=== PATIENT | male | born 1965 | race American Indian/Alaskan Native ===

== ENCOUNTER 2019-08-29 15:32 | Observation (INO) | payer OTHER ==
[2019-08-29] MEDS ORDERED: FAMOTIDINE 20 MG/2 ML INJ IV ONE (16:00)
[2019-08-29] MEDS ORDERED: MORPHINE 4 MG/1 ML INJ IV ONE ×2 (16:00→18:23)
[2019-08-29] MEDS ORDERED: SODIUM CHLORIDE 0.9% 1000 ML 1,000 ML IV ONE (16:00)
[2019-08-29] MEDS ORDERED: ONDANSETRON 4 MG/2 ML INJ IV ONE (16:00)
--- NOTE | 2019-08-29 16:07 | Emergency Department Report ---
ED General Adult HPI - General Chief complaint: Chest Pain Stated complaint: CHEST PAIN Time Seen by Provider: 08/29/19 15:55 Source: patient, EMS Mode of arrival: Stretcher Limitations: No Limitations - History of Present Illness Initial comments: Patient is a 53-year-old -[place]one[place] male with a past medical history of hypertension and alcohol abuse who is complaining of some right upper quadrant and right chest pain. Patient states it started gradually several hours ago. Patient assumed he had some indigestion. I did drink alcohol last night around 9 PM. Patient states that the pain began to worsen. Pain To 8 out of 10 in severity. There is no radiation of the pain. Patient has associated nausea vomiting. He denies fevers chills. Patient states he also has developed a mild cough which is nonproductive and he does also have some pleuritic pains as well. He denies diarrhea sore throat neck stiffness or shortness of breath at this time. - Related Data Home Medications Medication Instructions Recorded Confirmed Last Taken ALPRAZolam [Xanax TAB] 0.5 mg PO PRN 04/20/15 04/20/15 Unknown Cholecalciferol (Vitamin D3) 50,000 units PO QWEEK 04/20/15 04/20/15 Unknown [Vitamin D3] Zolpidem [Ambien] 1 tab PO QHS 04/20/15 04/20/15 Unknown Previous Rx's Medication Instructions Recorded Last Taken Type Colchicine [Colcrys] 0.6 mg PO BID #60 tablet 04/22/15 Unknown Rx Febuxostat (Nf) [Uloric (Nf)] 40 mg PO QDAY #30 tablet 04/22/15 Unknown Rx Oxycodone HCl/Acetaminophen 1 each PO Q6HR PRN #20 tablet 04/22/15 Unknown Rx [Percocet 7.5/325 mg] predniSONE [Deltasone] 20 mg PO QDAY #8 tablet 04/22/15 Unknown Rx Allergies Allergy/AdvReac Type Severity Reaction Status Date / Time No Known Allergies Allergy Unverified 04/20/15 18:29 ED Review of Systems ROS: Stated complaint: CHEST PAIN Other details as noted in HPI Comment: All other systems reviewed and negative ED Past Medical Hx - Past Medical History Hx Congestive Heart Failure: No Hx Diabetes: No Hx Asthma: No Hx COPD: No - Social History Smoking Status: Current Every Day Smoker Substance Use Type: Alcohol - Medications Home Medications: Home Medications Medication Instructions Recorded Confirmed Last Taken Type ALPRAZolam [Xanax TAB] 0.5 mg PO PRN 04/20/15 04/20/15 Unknown History Cholecalciferol (Vitamin D3) 50,000 units PO QWEEK 04/20/15 04/20/15 Unknown History [Vitamin D3] Zolpidem [Ambien] 1 tab PO QHS 04/20/15 04/20/15 Unknown History Colchicine [Colcrys] 0.6 mg PO BID #60 tablet 04/22/15 Unknown Rx Febuxostat (Nf) [Uloric (Nf)] 40 mg PO QDAY #30 tablet 04/22/15 Unknown Rx Oxycodone HCl/Acetaminophen 1 each PO Q6HR PRN #20 tablet 04/22/15 Unknown Rx [Percocet 7.5/325 mg] predniSONE [Deltasone] 20 mg PO QDAY #8 tablet 04/22/15 Unknown Rx ED Physical Exam - General Limitations: No Limitations General appearance: alert, anxious, in distress (secondary to pain) - Head Head exam: Present: atraumatic, normocephalic - Eye Eye exam: Present: normal appearance, PERRL, EOMI, scleral icterus - ENT ENT exam: Present: mucous membranes moist - Neck Neck exam: Present: normal inspection - Respiratory Respiratory exam: Present: normal lung sounds bilaterally. Absent: respiratory distress, wheezes, rales, rhonchi - Cardiovascular Cardiovascular Exam: Present: regular rate, normal rhythm. Absent: systolic murmur, diastolic murmur, rubs, gallop - GI/Abdominal GI/Abdominal exam: Present: soft, tenderness (RUQ), normal bowel sounds. Absent: distended, guarding, rebound, rigid - Rectal Rectal exam: Present: deferred - Extremities Exam Extremities exam: Present: normal inspection - Back Exam Back exam: Present: normal inspection - Neurological Exam Neurological exam: Present: alert, oriented X3 - Psychiatric Psychiatric exam: Present: normal affect, normal mood - Skin Skin exam: Present: warm, dry, intact, normal color. Absent: rash ED Course Vital Signs 08/29/19 08/29/19 08/29/19 15:57 15:59 17:09 Pulse Rate 77 81 Respiratory 15 18 Rate Blood Pressure 176/97 Blood Pressure [Left] O2 Sat by Pulse 98 98 Oximetry 08/29/19 08/29/19 18:21 19:14 Pulse Rate 81 88 Respiratory 18 20 Rate Blood Pressure Blood Pressure 179/109 142/90 [Left] O2 Sat by Pulse 99 99 Oximetry ED Medical Decision Making - Lab Data Result diagrams: 08/29/19 16:24 08/29/19 16:24 Lab Results 08/29/19 08/29/19 08/29/19 Range/Units 16:24 16:24 16:24 WBC 7.3 (4.5-11.0) K/mm3 RBC 4.50 (3.65-5.03) M/mm3 Hgb 11.6 L (11.8-15.2) gm/dl Hct 36.1 (35.5-45.6) % MCV 80 L (84-94) fl MCH 26 L (28-32) pg MCHC 32 (32-34) % RDW 16.0 H (13.2-15.2) % Plt Count 216 (140-440) K/mm3 Lymph % (Auto) 34.4 (13.4-35.0) % [place] % (Auto) 10.5 H (0.0-7.3) % Eos % (Auto) 0.3 (0.0-4.3) % Baso % (Auto) 0.4 (0.0-1.8) % Lymph # 2.5 (1.2-5.4) K/mm3 [place] # 0.8 (0.0-0.8) K/mm3 Eos # 0.0 (0.0-0.4) K/mm3 Baso # 0.0 (0.0-0.1) K/mm3 Seg Neutrophils % 54.4 (40.0-70.0) % Seg Neutrophils # 4.0 (1.8-7.7) K/mm3 PT 13.3 (12.2-14.9) Sec. INR 1.02 (0.87-1.13) APTT 29.7 (24.2-36.6) Sec. D-Dimer 197.18 (0-234) ng/mlDDU Sodium 139 (137-145) mmol/L Potassium 4.6 (3.6-5.0) mmol/L Chloride 101.2 (98-107) mmol/L Carbon Dioxide 20 L (22-30) mmol/L Anion Gap 22 mmol/L BUN 32 H (9-20) mg/dL Creatinine 1.0 (0.8-1.5) mg/dL Estimated GFR > 60 ml/min BUN/Creatinine Ratio 32 % Glucose 78 (75-100) mg/dL Calcium 8.9 (8.4-10.2) mg/dL Total Bilirubin 0.30 (0.1-1.2) mg/dL AST 14 (5-40) units/L ALT 6 L (7-56) units/L Alkaline Phosphatase 72 (35-129) units/L Total Protein 6.4 (6.3-8.2) g/dL Albumin 3.6 L (3.9-5) g/dL Albumin/Globulin Ratio 1.3 % Lipase 16 (13-60) units/L Urine Color (Yellow) Urine Turbidity (Clear) Urine pH (5.0-7.0) Ur Specific [place] (1.003-1.030) Urine Protein (Negative) mg/dL Urine Glucose (UA) (Negative) mg/dL Urine Ketones (Negative) mg/dL Urine Blood (Negative) Urine Nitrite (Negative) Urine Bilirubin (Negative) Urine Urobilinogen (<2.0) mg/dL Ur Leukocyte Esterase (Negative) Urine WBC (Auto) (0.0-6.0) /HPF Urine RBC (Auto) (0.0-6.0) /HPF U Epithel Cells (Auto) (0-13.0) /HPF Urine Mucus /HPF Plasma/Serum Alcohol (0-0.07) % 08/29/19 08/29/19 Range/Units 16:24 18:21 WBC (4.5-11.0) K/mm3 RBC (3.65-5.03) M/mm3 Hgb (11.8-15.2) gm/dl Hct (35.5-45.6) % MCV (84-94) fl MCH (28-32) pg MCHC (32-34) % RDW (13.2-15.2) % Plt Count (140-440) K/mm3 Lymph % (Auto) (13.4-35.0) % [place] % (Auto) (0.0-7.3) % Eos % (Auto) (0.0-4.3) % Baso % (Auto) (0.0-1.8) % Lymph # (1.2-5.4) K/mm3 [place] # (0.0-0.8) K/mm3 Eos # (0.0-0.4) K/mm3 Baso # (0.0-0.1) K/mm3 Seg Neutrophils % (40.0-70.0) % Seg Neutrophils # (1.8-7.7) K/mm3 PT (12.2-14.9) Sec. INR (0.87-1.13) APTT (24.2-36.6) Sec. D-Dimer (0-234) ng/mlDDU Sodium (137-145) mmol/L Potassium (3.6-5.0) mmol/L Chloride (98-107) mmol/L Carbon Dioxide (22-30) mmol/L Anion Gap mmol/L BUN (9-20) mg/dL Creatinine (0.8-1.5) mg/dL Estimated GFR ml/min BUN/Creatinine Ratio % Glucose (75-100) mg/dL Calcium (8.4-10.2) mg/dL Total Bilirubin (0.1-1.2) mg/dL AST (5-40) units/L ALT (7-56) units/L Alkaline Phosphatase (35-129) units/L Total Protein (6.3-8.2) g/dL Albumin (3.9-5) g/dL Albumin/Globulin Ratio % Lipase (13-60) units/L Urine Color Colorless (Yellow) Urine Turbidity Clear (Clear) Urine pH 5.0 (5.0-7.0) Ur Specific [place] 1.020 (1.003-1.030) Urine Protein <15 mg/dl (Negative) mg/dL Urine Glucose (UA) Neg (Negative) mg/dL Urine Ketones Neg (Negative) mg/dL Urine Blood Neg (Negative) Urine Nitrite Neg (Negative) Urine Bilirubin Neg (Negative) Urine Urobilinogen < 2.0 (<2.0) mg/dL Ur Leukocyte Esterase Neg (Negative) Urine WBC (Auto) < 1.0 (0.0-6.0) /HPF Urine RBC (Auto) 1.0 (0.0-6.0) /HPF U Epithel Cells (Auto) < 1.0 (0-13.0) /HPF Urine Mucus Few /HPF Plasma/Serum Alcohol < 0.01 (0-0.07) % - Radiology Data CT ABDOMEN AND PELVIS WITH CONTRAST INDICATION / CLINICAL INFORMATION: Right upper quadrant pain with nausea and vomiting. TECHNIQUE: Axial CT images were obtained through the abdomen and pelvis after 100 mL Omnipaque [address] scans at this location are performed using CT dose reduction for ALARA by means of automated exposure control. COMPARISON: None available. FINDINGS: LOWER CHEST: No significant abnormality. LIVER: No significant abnormality. BILIARY SYSTEM: No significant abnormality. Normal gallbladder. PANCREAS: Pancreatic tail, body and neck appear normal. At the posterior aspect of the pancreatic head just above the third segment of the duodenum, there is an ill-defined r elatively hypoattenuating area contiguous with the posterior margin of the pancreatic head that measures 3.1 x 2.1 cm in the axial plane (series 2 image 60). No pancreatic ductal dilatation. SPLEEN: No significant abnormality. ADRENALS: No significant abnormality. KIDNEYS and URETERS: No significant abnormality. STOMACH / BOWEL: No obstructive or inflammatory change involving the stomach and small intestine. There are numerous scattered colonic diverticula but no evidence of acute dive rticulitis. Normal appendix is seen. PERITONEUM: No free fluid. No free air. No fluid collection. LYMPH NODES: No adenopathy. VASCULAR STRUCTURES: Moderate atherosclerotic calcification without acute abnormality. URINARY BLADDER: No significant abnormality. REPRODUCTIVE ORGANS: No significant abnormality. ADDITIONAL FINDINGS: None. SKELETAL SYSTEM: L3 and L4 laminectomies and posterior instrumented fusion of the lumbar spine from L3 through L5 with bilateral pedicle screws. No suspicious focal bone lesion. No acute skeletal abnormality. IMPRESSION: 1. I am worried there may be an ill-defined, relatively hypoattenuating mass at the posterior aspect of the pancreatic head, 3.1 cm in width. No vascular encasement or regional adenopathy appreciated. Endoscopic evaluation with possible biopsy should be considered. Alternatively, PET/CT or perhaps MRI may be useful, although susceptibility artifact from the patient's lumbar hardware might detrimentally impact MR imaging. 2. Extensive colonic diverticulosis without evidence of acute diverticulitis. Signer Name: Pillo Cotton MD Signed: 08/29/2019 6:42 PM Workstation Name: [employer] - Medical Decision Making Patient is a 53-year-old -[place] male who has a past medical history of alcohol abuse. Patient drinks a pint of liquor daily. Patient states that he started having some abdominal pain with nausea vomiting today. Patient states he's never had this pain before. Patient's laboratory studies are relatively within normal limits. CT did show a ill-defined pancreatic mass at the head of the pancreas. This likely is causing the patient some pain and discomfort. This is also the general proximity of the patient's duodenum. Patient was given several doses of morphine for pain control. Patient's nausea has improved. Patient be admitted to the hospitalist service for further management and workup. - Differential Diagnosis acute hepatitis, pancreatitis, obstructive uropathy, PE, PNA, biliary colic Critical care attestation.: If time is entered above; I have spent that time in minutes in the direct care of this critically ill patient, excluding procedure time. ED Disposition Clinical Impression: Pancreatic mass, Intractable abdominal pain Disposition: OP ADMIT IP TO THIS HOSP Is pt being admited?: Yes Does the pt Need Aspirin: No Condition: Stable Time of Disposition: 19:26
--- NOTE | 2019-08-29 16:39 | XRay Report ---
CHEST 1 VIEW 08/29/2019 4:11 PM INDICATION / CLINICAL INFORMATION: right chest pain. COMPARISON: None available. FINDINGS: SUPPORT DEVICES: None. HEART / MEDIASTINUM: No significant abnormality. LUNGS / PLEURA: No significant pulmonary or pleural abnormality. No pneumothorax. ADDITIONAL FINDINGS: No significant additional findings. IMPRESSION: 1. No acute abnormality of the chest. Signer Name: Freeman Mchugh MD Signed: 08/29/2019 4:35 PM Workstation Name: [id number]
[2019-08-29 17:03] LABS: Alanine Aminotransferase 6 units/L (7-56); Albumin 3.6 g/dL (3.9-5); BUN/Creatinine Ratio 32; Blood Urea Nitrogen 32 mg/dL (9-20); Calcium 8.9 mg/dL (8.4-10.2); Hemolysis Index 3
[2019-08-29 17:05] LABS: Basophils % (Auto) 0.4 % (0.0-1.8); Eosinophils % (Auto) 0.3 % (0.0-4.3); Hematocrit 36.1 % (35.5-45.6); Hemoglobin 11.6 gm/dl (11.8-15.2); Lymphocytes # (Auto) 2.5 K/mm3 (1.2-5.4); Lymphocytes % (Auto) 34.4 % (13.4-35.0); Mean Corpuscular HGB Conc 32 % (32-34); Mean Corpuscular Volume 80 fl (84-94); Monocytes # (Auto) 0.8 K/mm3 (0.0-0.8); Monocytes % (Auto) 10.5 % (0.0-7.3); Platelet Count 216 K/mm3 (140-440)
[2019-08-29 17:15] LABS: INR 1.02 (0.87-1.13)
[2019-08-29 17:16] LABS: Partial Thromboplastin Time 29.7 Sec. (24.2-36.6)
[2019-08-29 18:31] LABS: Bilirubin,Urine NEG (Negative); Blood,Urine NEG (Negative); Color,Urine Colorless (Yellow); Mucus,Urine FEW /HPF; Protein,Urine <15 mg/dL mg/dL (Negative); Urobilinogen,Urine < 2.0 mg/dL (<2.0)
--- NOTE | 2019-08-29 18:46 | Cat Scan Report ---
CT ABDOMEN AND PELVIS WITH CONTRAST INDICATION / CLINICAL INFORMATION: Right upper quadrant pain with nausea and vomiting. TECHNIQUE: Axial CT images were obtained through the abdomen and pelvis after 100 mL Omnipaque [address] scans at this location are performed using CT dose reduction for ALARA by means of automated exposure control. COMPARISON: None available. FINDINGS: LOWER CHEST: No significant abnormality. LIVER: No significant abnormality. BILIARY SYSTEM: No significant abnormality. Normal gallbladder. PANCREAS: Pancreatic tail, body and neck appear normal. At the posterior aspect of the pancreatic hea d just above the third segment of the duodenum, there is an ill-defined relatively hypoattenuating ar ea contiguous with the posterior margin of the pancreatic head that measures 3.1 x 2.1 cm in the axia l plane (series 2 image 60). No pancreatic ductal dilatation. SPLEEN: No significant abnormality. ADRENALS: No significant abnormality. KIDNEYS and URETERS: No significant abnormality. STOMACH / BOWEL: No obstructive or inflammatory change involving the stomach and small intestine. The re are numerous scattered colonic diverticula but no evidence of acute diverticulitis. Normal appendi x is seen. PERITONEUM: No free fluid. No free air. No fluid collection. LYMPH NODES: No adenopathy. VASCULAR STRUCTURES: Moderate atherosclerotic calcification without acute abnormality. URINARY BLADDER: No significant abnormality. REPRODUCTIVE ORGANS: No significant abnormality. ADDITIONAL FINDINGS: None. SKELETAL SYSTEM: L3 and L4 laminectomies and posterior instrumented fusion of the lumbar spine from L 3 through L5 with bilateral pedicle screws. No suspicious focal bone lesion. No acute skeletal abnorm ality. IMPRESSION: 1. I am worried there may be an ill-defined, relatively hypoattenuating mass at the posterior aspect of the pancreatic head, 3.1 cm in width. No vascular encasement or regional adenopathy appreciated. E ndoscopic evaluation with possible biopsy should be considered. Alternatively, PET/CT or perhaps MRI may be useful, although susceptibility artifact from the patient's lumbar hardware might detrimentall y impact MR imaging. 2. Extensive colonic diverticulosis without evidence of acute diverticulitis. Signer Name: Pillo Cotton MD Signed: 08/29/2019 6:42 PM Workstation Name: [id number]
[2019-08-29 19:08] LABS: WBC,Urine < 1.0 /HPF (0.0-6.0)
[2019-08-29] MEDS: SODIUM CHLORIDE 0.9% 1000 ML 1,000 ML IV SCH (20:32)
[2019-08-29] MEDS ORDERED: ACETAMINOPHEN 325 MG TAB PO PRN (21:27)
[2019-08-29] MEDS ORDERED: IBUPROFEN 400 MG TAB PO ONE (21:29)
--- NOTE | 2019-08-29 21:30 | History and Physical Report ---
History of Present Illness Date of examination: 08/29/19 Date of admission: 08/29/19 19:27 History of present illness: 53-year-old man with a history of gout comes to the emergency room with com plaints of right upper quadrant pain that started this morning. Describes the pain as sharp, constant, intensity 6/10, no radiation, relieved with pain medication given in the emergency room. Admits to nausea vomiting, no fever no chills Review of systems Constitutional: no weight loss, chills, fever Ears, eyes, nose, mouth and throat: no nasal congestion, no nasal discharge, no sinus pressure, no vision change, no red eye. Neck: No neck pain or rigidity. Cardiovascular: no chest pain, palpitations Respiratory: no cough, shortness of breath Gastrointestinal: no hematochezia Genitourinary : no frequency , no hematuria Musculoskeletal: no joint swelling or muscle ache Integumentary: no rash, no pruritis Neurological: no parathesias, no numbness, no focal weakness Endocrine: no cold or heat intolerance, no polyuria or polydipsia Hematologic/Lymphatic: no easy bruising, no easy bleeding, no gland swelling Allergic/Immunologic: no urticaria, no angioedema. PAST MEDICAL HISTORY gout PAST SURGICAL HISTORY: Back Surgery 3 SOCIAL HISTORY: No drugs, tobacco, 2 beers a day FAMILY HISTORY: Hypertension Medications and Allergies Allergies Allergy/AdvReac Type Severity Reaction Status Date / Time No Known Allergies Allergy Unverified 04/20/15 18:29 Home Medications Medication Instructions Recorded Confirmed Last Taken Type ALPRAZolam [Xanax TAB] 0.5 mg PO PRN 04/20/15 08/29/19 Unknown History Cholecalciferol (Vitamin D3) 50,000 units PO QWEEK 04/20/15 08/29/19 Unknown History [Vitamin D3] Zolpidem [Ambien] 1 tab PO QHS 04/20/15 08/29/19 Unknown History Febuxostat (Nf) [Uloric (Nf)] 40 mg PO QDAY #30 tablet 04/22/15 08/29/19 Unknown Rx Oxycodone HCl/Acetaminophen 1 each PO Q6HR PRN #20 tablet 04/22/15 08/29/19 Un known Rx [Percocet 7.5/325 mg] predniSONE [Deltasone] 20 mg PO QDAY #8 tablet 04/22/15 08/29/19 Unknown Rx oxyCODONE /ACETAMINOPHEN [Percocet 1 tab PO Q6H PRN #10 tablet 08/30/19 Unknown Rx 5/325 mg] Active Meds: Active Medications Acetaminophen (Tylenol) 650 mg PO Q4H PRN PRN Reason: Pain MILD(1-3)/Fever >100.5/BACON Sodium Chloride (Nacl 0.9% 1000 Ml) 1,000 mls @ 125 mls/hr IV DIRECT KENDAL Last Admin: 08/29/19 20:32 Dose: 125 mls/hr Documented by: Ibuprofen (Ibuprofen) 400 mg PO ONCE ONE Stop: 08/29/19 21:30 Morphine Sulfate (Morphine) 2 mg IV Q4H PRN PRN Reason: Pain, Moderate (4-6) Ondansetron HCl (Zofran) 4 mg IV Q4H PRN PRN Reason: Nausea And Vomiting Sodium Chloride (Sodium Chloride Flush Syringe 10 Ml) 10 ml IV BID KENDAL Sodium Chloride (Sodium Chloride Flush Syringe 10 Ml) 10 ml IV PRN PRN PRN Reason: LINE FLUSH Exam - Physical Exam Narrative exam: Gen. appearance: Patient lying in bed, no apparent distress HEENT: Normocephalic, atraumatic, pupils equally round and reactive to light, extraocular movement intact, and no sclericterus,. No JVD or thyromegaly or nodule,neck supple, no carotid bruit ,mucous membranes moist, no exudate or erythema Heart: S1, S2, regular rate and rhythm Lungs: Clear bilaterally, breathing comfortable Abdomen: Positive bowel sounds, tender on thr RUQ, nondistended, no organomegaly Extremity:no edema cyanosis, clubbing Skin: no rash, dry, warm Neuro: Oriented 3, cranial nerves II-12 intact, speech is fluent, motor and sensory intact - Constitutional Vitals: Temp Pulse Resp BP Pulse Ox 88 20 142/90 99 08/29/19 19:14 08/29/19 19:14 08/29/19 19:14 08/29/19 19:14 Results - Labs CBC & Chem 7: 08/30/19 04:14 08/30/19 15:22 Labs: Abnormal lab results 08/29/19 08/29/19 Range/Units 16:24 16:24 Hgb 11.6 L (11.8-15.2) gm/dl MCV 80 L (84-94) fl MCH 26 L (28-32) pg RDW 16.0 H (13.2-15.2) % [place] % (Auto) 10.5 H (0.0-7.3) % Carbon Dioxide 20 L (22-30) mmol/L BUN 32 H (9-20) mg/dL ALT 6 L (7-56) units/L Albumin 3.6 L (3.9-5) g/dL - Imaging and Cardiology Chest x-ray: report reviewed CT scan - abdomen: report reviewed CT scan - pelvis: report reviewed Assessment and Plan Assessment Pancreatic mass Gout Plan Admit to medicine Patient having right-sided abdominal pain however biliary system is normal on CT Start IV fluid, IV morphine, consult GI DVT prophylaxis
[2019-08-29] MEDS: MORPHINE 2 MG/1 ML INJ IV PRN (23:52)
[2019-08-29] MEDS: ONDANSETRON 4 MG/2 ML INJ IV PRN (23:52)
[2019-08-30] MEDS: SODIUM CHLORIDE 0.9% 1000 ML 1,000 ML IV SCH ×2 (03:26→10:54)
[2019-08-30 05:06] LABS: Basophils % (Auto) 0.2 % (0.0-1.8); Eosinophils % (Auto) 0.3 % (0.0-4.3); Hematocrit 35.4 % (35.5-45.6); Hemoglobin 11.4 gm/dl (11.8-15.2); Lymphocytes # (Auto) 2.5 K/mm3 (1.2-5.4); Lymphocytes % (Auto) 34.3 % (13.4-35.0); Mean Corpuscular HGB Conc 32 % (32-34); Mean Corpuscular Volume 81 fl (84-94); Monocytes # (Auto) 0.7 K/mm3 (0.0-0.8); Monocytes % (Auto) 10.1 % (0.0-7.3); Platelet Count 190 K/mm3 (140-440); Red Blood Count 4.39 M/mm3 (3.65-5.03); Red Cell Distribution Width 16.4 % (13.2-15.2)
[2019-08-30] MEDS: ONDANSETRON 4 MG/2 ML INJ IV PRN (05:25)
[2019-08-30] MEDS: MORPHINE 2 MG/1 ML INJ IV PRN (05:25)
[2019-08-30 05:30] LABS: BUN/Creatinine Ratio 23; Blood Urea Nitrogen 25 mg/dL (9-20); Calcium 8.4 mg/dL (8.4-10.2); Hemolysis Index 93
[2019-08-30] MEDS ORDERED: FEBUXOSTAT 40 MG PO SCH (10:00)
[2019-08-30] MEDS ORDERED: predniSONE 20 MG TAB PO SCH (10:00)
[2019-08-30] MEDS ORDERED: NON-FORMULARY EACH (Oxycodone Hcl/Acetaminophen [Percocet 7.5/325 Mg] 1 EACH) PO PRN (10:00)
[2019-08-30] MEDS ORDERED: NON-FORMULARY EACH (Colchicine [Colcrys] 0.6 MG) PO SCH (10:00)
[2019-08-30] MEDS ORDERED: ALPRAZolam 0.5 MG TAB PO PRN (10:00)
[2019-08-30] MEDS ORDERED: oxyCODONE /ACETAMINOPHEN 5-325MG TAB PO PRN (10:10)
[2019-08-30] MEDS ORDERED: oxyCODONE 5 MG TAB PO PRN (10:10)
--- NOTE | 2019-08-30 10:20 | Gastroenterology Consultation ---
<EVA ESCOTO - Last Filed: 08/30/19 10:28> History of Present Illness - Reason for Consult Consult date: 08/30/19 pancreatic mass Requesting physician: MARE LEE - History of Present Illness Patient is a 53 y/o male with PMH of HTN, ETOH abuse, and gout who presented to ED yesterday with acute onset of RUQ abdominal pain with associated N/V x 1 episode that has now resolved. Upon admission, abd CT showed possible pancreatic mass to which GI has been consulted. This morning patient was resting in bed w/o acute distress. Reports continued RUQ abd pain but denies fever, CP, SOB, wt loss, jaundice, signs of bleeding, or LGI symptoms. Admits to heavy daily alcohol use but no hx or Fhx of liver/pancreatic disease. Past History Past Medical History: other (as per HPI) Past Surgical History: Other (back surgery x 3) Social history: alcohol abuse. denies: smoking Family history: hypertension Medications and Allergies Allergies Allergy/AdvReac Type Severity Reaction Status Date / Time No Known Allergies Allergy Unverified 04/20/15 18:29 Home Medications Medication Instructions Recorded Confirmed Last Taken Type ALPRAZolam [Xanax TAB] 0.5 mg PO PRN 04/20/15 08/29/19 Unknown History Cholecalciferol (Vitamin D3) 50,000 units PO QWEEK 04/20/15 08/29/19 Unknown History [Vitamin D3] Zolpidem [Ambien] 1 tab PO QHS 04/20/15 08/29/19 Unknown History Febuxostat (Nf) [Uloric (Nf)] 40 mg PO QDAY #30 tablet 04/22/15 08/29/19 Unknown Rx Oxycodone HCl/Acetaminophen 1 each PO Q6HR PRN #20 tablet 04/22/15 08/29/19 Unknown Rx [Percocet 7.5/325 mg] predniSONE [Deltasone] 20 mg PO QDAY #8 tablet 04/22/15 08/29/19 Unknown Rx oxyCODONE /ACETAMINOPHEN [Percocet 1 tab PO Q6H PRN #10 tablet 08/30/19 Unknown Rx 5/325 mg] Active Meds: Active Medications Acetaminophen (Tylenol) 650 mg PO Q4H PRN PRN Reason: Pain MILD(1-3)/Fever >100.5/BACON Alprazolam (Xanax) 0.5 mg PO Q8H PRN PRN Reason: Anxiety Colchicine (Colchicine) 0.6 mg PO BID [facility] Ergocalciferol (Vitamin D2) 50,000 unit PO Mo@1000 [facility] Sodium Chloride (Nacl 0.9% 1000 Ml) 1,000 mls @ 125 mls/hr IV DIRECT [facility] Last Admin: 08/30/19 03:26 Dose: 125 mls/hr Documented by: Miscellaneous Medication (Febuxostat (Nf)) 40 mg PO QDAY [facility] Morphine Sulfate (Morphine) 2 mg IV Q4H PRN PRN Reason: Pain, Moderate (4-6) Last Admin: 08/30/19 05:25 Dose: 2 mg Documented by: Ondansetron HCl (Zofran) 4 mg IV Q4H PRN PRN Reason: Nausea And Vomiting Last Admin: 08/30/19 05:25 Dose: 4 mg Documented by: Oxycodone HCl (Roxicodone) 2.5 mg PO Q6H PRN PRN Reason: Pain, Moderate (4-6) Oxycodone/Acetaminophen (Percocet 5/325) 1 tab PO Q6H PRN PRN Reason: Pain, Moderate (4-6) Prednisone (Deltasone) 20 mg PO QDAY [facility] Sodium Chloride (Sodium Chloride Flush Syringe 10 Ml) 10 ml IV BID [facility] Last Admin: 08/30/19 09:30 Dose: 10 ml Documented by: Sodium Chloride (Sodium Chloride Flush Syringe 10 Ml) 10 ml IV PRN PRN PRN Reason: LINE FLUSH Zolpidem Tartrate (Ambien) 10 mg PO QHS [facility] medications reviewed/updated as required Review of Systems - Review of Systems All systems: negative Gastrointestinal: abdominal pain (RUQ) Exam - Constitutional Vital Signs: Temp Pulse Resp BP Pulse Ox 98.5 F 73 18 165/89 100 08/29/19 20:34 08/29/19 20:34 08/30/19 05:55 08/29/19 20:34 08/29/19 20:34 General appearance: no acute distress - EENT Eyes: PERRL, EOM intact ENT: hearing intact - Respiratory Respiratory effort: normal - Cardiovascular Rhythm: regular - Gastrointestinal General gastrointestinal: Present: soft, tender (RUQ), non-distended, normal bowel sounds - Integumentary Integumentary: Present: warm, dry - Neurologic Neurological: alert and oriented x3 - Labs CBC & Chem 7: 08/30/19 04:14 08/30/19 04:14 Lab Results: Laboratory Results - last 24 hr 08/29/19 08/29/19 08/29/19 16:24 16:24 16:24 WBC 7.3 RBC 4.50 Hgb 11.6 L Hct 36.1 MCV 80 L MCH 26 L MCHC 32 RDW 16.0 H Plt Count 216 Lymph % (Auto) 34.4 Sharkey % (Auto) 10.5 H Eos % (Auto) 0.3 Baso % (Auto) 0.4 Lymph # 2.5 Sharkey # 0.8 Eos # 0.0 Baso # 0.0 Seg Neutrophils % 54.4 Seg Neutrophils # 4.0 PT 13.3 INR 1.02 APTT 29.7 D-Dimer 197.18 Sodium 139 Potassium 4.6 Chloride 101.2 Carbon Dioxide 20 L Anion Gap 22 BUN 32 H Creatinine 1.0 Estimated GFR > 60 BUN/Creatinine Ratio 32 Glucose 78 Calcium 8.9 Total Bilirubin 0.30 AST 14 ALT 6 L Alkaline Phosphatase 72 Total Protein 6.4 Albumin 3.6 L Albumin/Globulin Ratio 1.3 Lipase 16 Urine Color Urine Turbidity Urine pH Ur Specific [place] Urine Protein Urine Glucose (UA) Urine Ketones Urine Blood Urine Nitrite Urine Bilirubin Urine Urobilinogen Ur Leukocyte Esterase Urine WBC (Auto) Urine RBC (Auto) U Epithel Cells (Auto) Urine Mucus Plasma/Serum Alcohol 08/29/19 08/29/19 08/30/19 16:24 18:21 04:14 WBC 7.3 RBC 4.39 Hgb 11.4 L Hct 35.4 L MCV 81 L MCH 26 L MCHC 32 RDW 16.4 H Plt Count 190 Lymph % (Auto) 34.3 Sharkey % (Auto) 10.1 H Eos % (Auto) 0.3 Baso % (Auto) 0.2 Lymph # 2.5 Sharkey # 0.7 Eos # 0.0 Baso # 0.0 Seg Neutrophils % 55.1 Seg Neutrophils # 4.0 PT INR APTT D-Dimer Sodium Potassium Chloride Carbon Dioxide Anion Gap BUN Creatinine Estimated GFR BUN/Creatinine Ratio Glucose Calcium Total Bilirubin AST ALT Alkaline Phosphatase Total Protein Albumin Albumin/Globulin Ratio Lipase Urine Color Colorless Urine Turbidity Clear Urine pH 5.0 Ur Specific [place] 1.020 Urine Protein <15 mg/dl Urine Glucose (UA) Neg Urine Ketones Neg Urine Blood Neg Urine Nitrite Neg Urine Bilirubin Neg Urine Urobilinogen < 2.0 Ur Leukocyte Esterase Neg Urine WBC (Auto) < 1.0 Urine RBC (Auto) 1.0 U Epithel Cells (Auto) < 1.0 Urine Mucus Few Plasma/Serum Alcohol < 0.01 08/30/19 04:14 WBC RBC Hgb Hct MCV MCH MCHC RDW Plt Count Lymph % (Auto) Sharkey % (Auto) Eos % (Auto) Baso % (Auto) Lymph # Sharkey # Eos # Baso # Seg Neutrophils % Seg Neutrophils # PT INR APTT D-Dimer Sodium 139 Potassium 5.1 H Chloride 101.7 Carbon Dioxide 22 Anion Gap 20 BUN 25 H Creatinine 1.1 Estimated GFR > 60 BUN/Creatinine Ratio 23 Glucose 74 L Calcium 8.4 Total Bilirubin AST ALT Alkaline Phosphatase Total Protein Albumin Albumin/Globulin Ratio Lipase Urine Color Urine Turbidity Urine pH Ur Specific [place] Urine Protein Urine Glucose (UA) Urine Ketones Urine Blood Urine Nitrite Urine Bilirubin Urine Urobilinogen Ur Leukocyte Esterase Urine WBC (Auto) Urine RBC (Auto) U Epithel Cells (Auto) Urine Mucus Plasma/Serum Alcohol Assessment and Plan 1.RUQ abdominal pain 2.N/V-resolved 3.abnormal CT (possible pancreatic mass) 4.ETOH abuse -afebrile -H/H 11.4/35.4-stable (no active signs of bleeding) -WBC, INR, plt, LFTs, and lipase WNL -abd CT showed ill defined, relatively hypoattenuating mass at the posterior aspect of the pancreatic head, along with colonic diverticulosis (no acute diverticulitis; gallbladder and liver normal) -will order CA 19-9 and MRI for further evaluation -patient may need further workup as outpatient with EUS based on above results -diet as tolerated -start on daily PPI -continue supportive care -alcohol cessation discussed/encouraged with patient -further recommendations to follow <DELICIA DELGADO - Last Filed: 08/30/19 23:29> Exam - Constitutional Vital Signs: Temp Pulse Resp BP Pulse Ox 98.8 F 77 20 144/88 97 08/30/19 11:11 08/30/19 11:11 08/30/19 11:11 08/30/19 11:11 08/30/19 11:11 - Labs CBC & Chem 7: 08/30/19 04:14 08/30/19 15:22 Lab Results: Laboratory Results - last 24 hr 08/30/19 08/30/19 08/30/19 04:14 04:14 15:22 WBC 7.3 RBC 4.39 Hgb 11.4 L Hct 35.4 L MCV 81 L MCH 26 L MCHC 32 RDW 16.4 H Plt Count 190 Lymph % (Auto) 34.3 Sharkey % (Auto) 10.1 H Eos % (Auto) 0.3 Baso % (Auto) 0.2 Lymph # 2.5 Sharkey # 0.7 Eos # 0.0 Baso # 0.0 Seg Neutrophils % 55.1 Seg Neutrophils # 4.0 Sodium 139 Potassium 5.1 H 4.6 Chloride 101.7 Carbon Dioxide 22 Anion Gap 20 BUN 25 H Creatinine 1.1 Estimated GFR > 60 BUN/Creatinine Ratio 23 Glucose 74 L Calcium 8.4 Assessment and Plan pt seen and examined, chart reviewed, consult below reviewed - pt presents with abdominal pain with nausea, vomiting - ct scan showed pancreatic lesion vss p.e.: nad abd: soft - management as outlined below - will follow
[2019-08-30] MEDS ORDERED: PANTOPRAZOLE 40 MG INJ IV SCH (11:00)
[2019-08-30] MEDS ORDERED: ERGOCALCIFEROL (VIT D2) 50,000 UNIT CAP PO SCH (12:00)
[2019-08-30] MEDS ORDERED: CHOLECALCIFEROL (VIT D3) 5,000 UNIT TAB PO SCH (12:00)
[2019-08-30 12:07] VITALS: BP 144/88
[2019-08-30] MEDS ORDERED: INSULIN REGULAR, HUMAN 100 UNITS/1 ML IV ONE (12:26)
[2019-08-30] MEDS ORDERED: DEXTROSE 50% IN WATER (25GM) 50 ML SYRINGE IV ONE (12:26)
[2019-08-30] MEDS: COLCHICINE 0.6 MG CAP PO SCH ×2 (13:33→13:37)
--- NOTE | 2019-08-30 14:14 | Magnetic Resonance Report ---
MRI ABDOMEN WITHOUT AND WITH CONTRAST INDICATION / CLINICAL INFORMATION: pancreatic mass seen on CT. TECHNIQUE: Multiplanar, multisequence series were obtained through the abdomen. Postcontrast dynamic imaging fol lowing 15 cc of MultiHance intravenously. COMPARISON: CT abdomen pelvis with contrast dated 08/29/2019 FINDINGS: LIVER: No significant abnormality. GALLBLADDER: No significant abnormality. BILE DUCTS: No significant abnormality. PANCREAS: There is better visualization of the pancreas on MR. No pancreatic mass or inflammation is identified on MRI. MRCP images demonstrate a normal-appearing pancreatic oh biliary tree. No obstruct ion or displacement. A lithiasis is appreciated. SPLEEN: No significant abnormality. ADRENALS: No significant abnormality. RIGHT KIDNEY AND URETER: No significant abnormality. LEFT KIDNEY AND URETER: No significant abnormality. STOMACH AND VISUALIZED BOWEL: No significant abnormality. PERITONEUM: No free fluid. No free air. No fluid collection. LYMPH NODES: No significant adenopathy. AORTA and ARTERIES: No significant abnormality. IVC and VEINS: No significant abnormality. ADDITIONAL FINDINGS: A small umbilical hernia containing fat is identified. SKELETAL SYSTEM: Posterior fusion changes in the lumbar spine generate mild artifact. No suspicious b darrell lesion is appreciated. IMPRESSION: Essentially unremarkable MR abdomen with and without contrast. No pancreatic mass is identified on MR . Normal MRCP. Signer Name: Adis Rondon Jr, MD Signed: 08/30/2019 2:10 PM Workstation Name: [id number]
--- NOTE | 2019-08-30 14:14 | Discharge Summary ---
Providers - Providers Date of Admission: 08/29/19 19:27 Date of discharge: 08/30/19 Attending physician: VINH HOOKER 08/29/19 21:27 Consult to Physician [CONS] Routine Comment: Consulting Provider: EFRAIN BATISTA Physician Instructions: Reason For Exam: pancreatic mass Primary care physician: MANAGER [place] Hospitalization Condition: Stable Hospital course: Discharge diagnosis: Pancreatic mass Gout Alcohol abuse Disposition: - TO HOME OR SELFCARE Time spent for discharge: 34 minutes Core Measure Documentation - Palliative Care Palliative Care/ Comfort Measures: Not Applicable - Core Measures Any of the following diagnoses?: none Exam - Constitutional Vitals: Temp Pulse Resp BP Pulse Ox 98.8 F 77 20 144/88 97 08/30/19 11:11 08/30/19 11:11 08/30/19 11:11 08/30/19 11:11 08/30/19 11:11 Plan Follow up with: PRIMARY MD JADA [Primary Care Provider] - 7 Days
[2019-08-30] MEDS ORDERED: allopurinoL 100 MG TAB PO SCH (15:00)
[2019-08-30] MEDS ORDERED: ZOLPIDEM 5 MG TAB PO SCH (22:00)
[2019-08-30] MEDS ORDERED: ZOLPIDEM PO SCH (22:00)
== END 2019-08-30 18:15 | disposition home or self-care (01) ==
LOC: ED 15:32 → 3A 19:27
PROVIDERS: ADMIT Internal Medicine; ATTEND Internal Medicine
DX: K86.89 Other specified diseases of pancreas (principal); R11.2 Nausea with vomiting, unspecified; F10.10 Alcohol abuse, uncomplicated; I10 Essential (primary) hypertension; M10.9 Gout, unspecified; F17.200 Nicotine dependence, unspecified, uncomplicated; Z79.899 Other long term (current) drug therapy
CPT/HCPCS: 36415; 71045; 74177; 74183; 80048; 80053; 81001; 83690; 84132; 85025; 85379; 85610; 85730; 87116; 96361; 96374; 96375; 96376; 99284; A9577; C9113; G0378; J2270; J2405; J7030; J7512; Q9967; 80320; G0480; J1815